=== PATIENT | female | born 1960 ===

== ENCOUNTER 2020-09-11 12:04 | Day surgery (SDC) | payer OTHER ==
[2020-09-11] VITALS (9 sets, daily range): BP systolic 118–175; BP diastolic 66–80; PULSE 75–87; TEMP 98.3–98.4
[~2020-09-11] VITALS: Ht 165.1 cm; Wt 63.9 kg
[2020-09-11 13:10] LABS: BASO % 0.7 % (0.0-2.0); EOS # 0.1 (0.0-0.7); EOS % 2.5 % (0-4.0); GRAN # 2.5 (1.4-6.5); GRAN % 58.9 % (42.2-75.2); HEMATOCRIT 40.9 % (37.0-47.0); HEMOGLOBIN 13.6 g/dl (12.5-16.0); LYMPH # 1.2 (1.2-3.4); LYMPH % 27.5 % (20.0-51.0); MEAN CELL VOLUME 96 fl (80.0-100.0); MEAN CORPUSCULAR HEMOGLOBIN 32 pg (27.0-31.0); MEAN CORPUSCULAR HGB CONC 33 g/dl (33.0-37.0); MONO # 0.4 (0.1-0.6); MONO % 10.2 % (1.7-9.3); PLATELET COUNT 192 K/mm3 (130-400); RED BLOOD COUNT 4.25 M/mm3 (4.10-5.30)
[2020-09-11] MEDS ORDERED: PROTONIX 40MG T40 MG PO (13:11)
[2020-09-11] MEDS ORDERED: WELLBUTRIN 100100 MG PO (13:12)
[2020-09-11] MEDS ORDERED: CENTRUM SILVER1 TA2 PO (13:13)
[2020-09-11] MEDS ORDERED: VITAMIND3 5000 PO (13:13)
--- NOTE | 2020-09-11 13:18 | NUR ---
TO RM 6 AT 12:22 CALL LIGHT IN REACH
[2020-09-11 13:19] LABS: CALCIUM 9.7 mg/dL (8.4-10.2); CREATININE, serum 0.81 (0.52-1.25)
[2020-09-11] MEDS ORDERED: PERCOCET 325 MG1 TA2 PO (15:37)
[2020-09-11] MEDS ORDERED: MOTRIN 600600 MG/TAB PO (15:38)
[2020-09-11] MEDS ORDERED: COLACE 100100 MG/CAP PO (15:38)
[2020-09-11] MEDS ORDERED: ZOFRAN ODT4 MG PO (17:05)
--- NOTE | 2020-09-11 17:50 | NUR ---
Patient to room 344 by cart from the PACU. with the patient. Patient was unable to abmulate to the bed, slid to the bed with standby assist. Patient A&Ox3. VSS. IV to gravity. Reporting "boarderline" nausea. Denies pain and discomfort. Patient requested a warm blanket and wanted to rest. Post op VS monitored. Call light within reach
--- NOTE | 2020-09-11 19:00 | NUR ---
Patient sitting up in bed, states that nausea is getting better. A&O. VSS. IV CDI. Lap sites x4 CDI. Water and saltine crackers. VS being monitored. Call light within reach. Report to KAPIL German.
--- NOTE | 2020-09-11 19:54 | NUR ---
PT UP TO BATHROOM, VOIDS AND BACK TO BED. REMAINS NAUSEATED WITH SOME PAIN IN STOMACH. PERCOCET GIVEN WELL JELLO.
--- NOTE | 2020-09-11 19:55 | NUR ---
MEDICATED WITH PERCOCET 1 TAB PO AT THIS TIME FOR ABD PAIN 8/10. NAUSEA MINIMAL, JELLO ATTEMPTED.
--- NOTE | 2020-09-11 20:47 | NUR ---
PT WANTING TO GO HOME. VSS, NO FURTHER EMESIS. PAIN CONTROLLED. HAS TAKEN CRACKERS AND WATER.
--- NOTE | 2020-09-11 21:00 | NUR ---
PT DRESSED. ABD INCISIONS GLUED, D/I. MEDICATED WITH ZOFRAN IV AT THIS TIME FOR GOING HOME. REMOVED SL FROM RIGHT HAND WITHOUT PROBLEM, ANGIOCATH INTACT.
--- NOTE | 2020-09-11 21:10 | NUR ---
REVIEWED DISCHARGE INSTRUCTIONS WITH PATIENT AND SPOUSE. VERBALIZED UNDERSTANDING. SPOUSE HAS ALREADY PICKED UP NEW HOME MEDS.
--- NOTE | 2020-09-11 21:13 | NUR ---
PT TAKEN VIA W/C TO PRIVATE CAR FOR DISCHARGE. ACCOMPANIED BY SURGICAL PCT JOHNATHON. COPY OF DISCHARGE INSTRUCTIONS SENT WITH PT WELL ALL PERSONAL BELONGINGS.
== END 2020-09-11 21:13 | disposition home or self-care (01) ==
LOC: SDCO 12:04 → SURG 17:48 → SDCO 21:13
PROVIDERS: Surgery
DX: K81.1 Chronic cholecystitis (principal); K21.9 Gastro-esophageal reflux disease without esophagitis; F32.9 Major depressive disorder, single episode, unspecified; Z79.899 Other long term (current) drug therapy
CPT/HCPCS: OP; J0330; J0690; J1100; J1885; J2405; J2550; J2704; J2765; J3010; J7120; Q9967